=== PATIENT | male | born 1935 | race Caucasian/White ===

== ENCOUNTER 2017-05-15 11:05 | Emergency (ER) | payer MEDICARE, OTHER ==
[2015-09-22 08:37] VITALS: BMI 28.1
[~2017-05-15 11:05] MED LIST: BAYER CHEWABLE81 MG PO; EXFORGE 5-160 M1 TAB PO; OMEPRAZOLE40 MG PO; PLAVIX75 MG PO; TENORMIN50 MG PO; ZOCOR20 MG PO; ZYLOPRIM300 MG PO
== END 2017-05-15 13:29 ==
LOC: D.ER 11:05
DX: I46.9 Cardiac arrest, cause unspecified (principal); I45.10 Unspecified right bundle-branch block